=== PATIENT | male | born 1975 ===

== ENCOUNTER 2017-12-12 11:24 | Outpatient (CLI) | payer OTHER ==
[~2017-12-12] VITALS: Ht 152.4 cm; Wt 79.8 kg
== END 2017-12-12 11:45 | disposition home or self-care (01) ==
LOC: OFIC 805 11:24
DX: H90.3 Sensorineural hearing loss, bilateral (principal)

== ENCOUNTER 2017-12-23 09:26 | Outpatient (CLI) | payer OTHER ==
[~2017-12-23] VITALS: Ht 152.4 cm; Wt 79.8 kg
== END 2017-12-23 09:45 | disposition home or self-care (01) ==
LOC: OFIC 805 09:26
DX: H90.6 Mixed conductive and sensorineural hearing loss, bilateral (principal); J31.0 Chronic rhinitis; H93.13 Tinnitus, bilateral